=== PATIENT | male | born 1940 | race Caucasian/White ===

== ENCOUNTER 2025-05-24 07:33 | Outpatient (CLI) | payer MEDICARE ==
[2025-05-24 08:11] LABS: Estimated GFR - POC 59.0
[2025-05-24] MEDS ORDERED: Iopamidol 370 76% 100 ML VIAL ONE (11:49)
== END 2025-05-24 07:34 | disposition home or self-care (01) ==
LOC: CT 07:33
PROVIDERS: ATTEND Specialist
DX: R22.1 Localized swelling, mass and lump, neck (principal); Z85.828 Personal history of other malignant neoplasm of skin
CPT/HCPCS: 36415; 70491; 82565; Q9967